=== PATIENT | female | born 1970 | race Caucasian/White ===

== ENCOUNTER 2020-09-21 12:21 | Emergency (ER) | payer BC ==
--- OUTSIDE RECORDS SUMMARY | 2020-09-21 12:24 | XMS REPORT | Continuity of Care Document ---
:1970 Author Organization [facility] t Address [address] [place] [address] Care Team Providers Name Role Phone JENA GONZALEZ Attending Clinician Unavailable Payers Payer Name Policy Type Policy Number Effective Date Expiration Date S katya [employer] PPO [id number] 2020 00:00:00 Problems Condition Condition Condition Status Onset Resolution Last Treating Co mments Source Name Details Category Date Date Treatment Clinician Date ROUTINE Condition Active 2014-04-30 Me moria GYNECOLOGI 2-25 13:35:00 l HANNA ROUTINE 00:00: Harper EXAMINATIO GYNECOLOGI 00 N HANNA EXAMINATIO N Active 04/16/2012 Condition 5 [facility] [employer] SURVEILLAN Condition Active 2014-04-30 Memoria CE PREV 2-25 13:35:00 l PRESCRIBED 00:00: Stefano n CONTRACEPT SURVEILLAN 00 PILL CE PREV PRESCRIBED CONTRACEPT PILL Active 04/16/2012 Condition 5 [facility] Allergies, Adverse Reactions, Alerts This patient has no known allergies or adverse reactions. Medications Ordered Filled Start Stop Current Ordering Indication Dosage Frequency Signature Comments Components Source Medication Medication Date Date Medication? Clinician (SIG) Name Name LAMICTAL Yes Memoria 200 MG TABS 3-11 l 13:35: Korey 00 FOCALIN XR Yes 1 po qd Tyrone sharmila 10 MG 3-11 l [id number] 13:35: Korey 00 NATAZIA Yes take one Memori a 3/2-2/2-3/1 2-25 by mouth l MG TABS 00:00: daily Harper 00 Vital Signs Vital Name Observation Time Observation Value Comments Source Weight 2014-04-30 16:31:41 [facility] Systolic (mm Hg) 2014-04-30 16:31:41 [place] rial Harper Diastolic (mm Hg) 2014-04-30 16:31:41 Mem orial Harper Heart Rate 2014-04-30 16:31:41 [facility] Korey Weight 2013-04-24 16:53:22 [facility] Korey Systolic (mm Hg) 2013-04-24 16:53:22 [place] rial Korey Diastolic (mm Hg) 2013-04-24 16:53:22 Mem orial Harper Height 2012-04-16 20:49:30 [facility] Weight 2012-04-16 20:49:30 [facility] Systolic (mm Hg) 2012-04-16 20:49:30 [place] rial Harper Diastolic (mm Hg) 2012-04-16 20:49:30 Mem orial Harper Heart Rate 2012-04-16 20:49:30 [facility] Procedures Procedure Date / Time Performed Performing Clinician [facility] e vaginal Pap smear results 2011-01-26 16:01:24 Hi morial Korey mammogram 2001-06-19 15:00:54 [facility] Encounters Start End Encounter Admission Attending Care Care Encounter Source Date/Time Date/Time Type Type Clinicians Facility Department ID 2020-09-12 Outpatient [facility] [id number] [place] 01:04:22 CHANDLER Collado 2020-08-12 2020-08-12 Outpatient [id number] 09:44:00 09:44:00 Results Test Description Test Time Test Comments Results Result Comments Source Membership Coordinator 2014-04-30 normal [facility] Jessica nn 16:31:41 Membership Coordinator 2012-05-02 Complete [facility] Jessica nn 05:00:00 Membership Coordinator 2011-01-26 Done [facility] Jessica nn 16:01:24
[2020-09-21 14:36] LABS: Protime INR 0.96
--- NOTE | 2020-09-21 14:40 | RAD REPORT ---
EXAM DESCRIPTION: CTAbdomen Pelvis W Contrast - 09/21/2020 2:30 pm CLINICAL HISTORY: Abdominal pain. VAGINAL BLEEDING COMPARISON: Abdomen Pelvis W Contrast dated 05/09/2016 TECHNIQUE: Biphasic CT imaging of the abdomen and pelvis was performed with 100 ml non-ionic IV cont rast. All CT scans are performed using dose optimization technique as appropriate and may include automated exposure control or mA/KV adjustment according to patient size. FINDINGS: The lung bases are clear. The liver, spleen, pancreas, adrenal glands and kidneys are within normal limits. Benign cysts are pr esent in both kidneys. No bowel obstruction, free air, free fluid or abscess. Significant stool is retained throughout the c olon. The appendix is normal. No evidence of significant lymphadenopathy. No suspicious bony findings. IMPRESSION: No acute intra-abdominal or pelvic finding. Significant stool is retained throughout the colon.
[2020-09-21 14:52] LABS: Albumin 3.9 g/dL (3.4-5.0); Bilirubin Direct 0.1 mg/dL (0-0.2); Bilirubin Total 0.4 mg/dL (0.2-1.0); Potassium 3.7 mmol/L (3.5-5.1); Protein, Total 7.2 g/dL (6.4-8.2)
[2020-09-21 14:54] LABS: Absolute Lymphocytes (CBC) 2.1 K/uL (0.7-4.9); Basophils % 0.6 % (0-1.3); Hematocrit 41.9 % (36.0-45.0); Lymphocytes % 31.2 % (15.3-44.8); MPV 8.2 fL (7.6-11.3); RBC Red Blood Cell Count 4.38 M/uL (3.86-4.86)
[2020-09-21] MEDS ORDERED: ESTROGENS,CONJ 25 MG IV IV SCH (16:00)
[2020-09-21 16:01] LABS: Urine Blood Trace-intact (Negative); Urine Glucose Negative (Negative); Urine Protein Negative (Negative); Urine pH 7.5 (5.0-7.0)
--- NOTE | 2020-09-21 16:34 | ER ---
Nurse's Notes [facility] Name: Javan Mora Age: 50 yrs Sex: Female : 1970 Arrival Date: 09/21/2020 Time: 12:36 Bed Treatment Private MD: Diagnosis: Abnormal uterine and vaginal bleeding, unspecified Presentation: 09/21 14:09 Chief complaint: Patient states: had a hysterectomy 6 weeks ago and started having iw vaginal bleeding, her surgeon is out of town , started spotting yesterday. Coronavirus screen: At this time, the client does not indicate any symptoms associated with coronavirus-19. Ebola Screen: Patient negative for fever greater than or equal to 101.5 degrees Fahrenheit, and additional compatible Ebola Virus Disease symptoms Patient denies exposure to infectious person. Patient denies travel to an Ebola-affected area in the 21 days before illness onset. No symptoms or risks identified at this time. Initial Sepsis Screen: Does the patient meet any 2 criteria? No. Patient's initial sepsis screen is negative. Does the patient have a suspected source of infection? No. Patient's initial sepsis screen is negative. Risk Assessment: Do you want to hurt yourself or someone else? Patient reports no desire to harm self or others. Onset of symptoms was September 20, 2020. 14:09 Method Of Arrival: Ambulatory iw 14:09 Acuity: JACKIE 3 iw Triage Assessment: 17:15 General: Appears in no apparent distress. Behavior is calm, cooperative. iw Historical: - Allergies: 14:10 dermabond; iw - PMHx: 14:10 Bipolar disorder; iw Screenin:12 Abuse screen: Denies threats or abuse. Denies injuries from another. Nutritional iw screening: No deficits noted. Tuberculosis screening: No symptoms or risk factors identified. Fall Risk None identified. Assessment: 16:20 General: Appears in no apparent distress. Behavior is calm, cooperative. Pain: iw Complains of pain in suprapubic area. Neuro: Level of Consciousness is awake, alert, obeys commands, Oriented to person, place, time, situation. Cardiovascular: Patient's skin is warm and dry. Respiratory: Respiratory effort is even, unlabored, Respiratory pattern is regular, symmetrical. : Reports vaginal bleeding that is spotty. Derm: Skin is intact, is healthy with good turgor. Musculoskeletal: Range of motion: intact in all extremities. Vital Signs: 14:09 BP 157 / 106; Pulse 96; Resp 16; Temp 98.0; Pulse Ox 100% on R/A; iw ED Course: 12:36 Patient arrived in ED. am2 14:10 Triage completed. iw 14:11 Arm band placed on. iw 14:17 Inserted saline lock: 22 gauge in right antecubital area, using aseptic technique. iw 14:30 CT Abd/Pelvis - IV Contrast Only In Process Unspecified. EDMS 15:51 Evelio Alcazar NP is PHCP. pm1 15:51 Dedrick Moore MD is Attending Physician. pm1 15:56 Justina Freeman RN is Primary Nurse. iw 16:20 Patient has correct armband on for positive identification. iw 18:12 No provider procedures requiring assistance completed. IV discontinued, intact, iw bleeding controlled, No redness/swelling at site. Pressure dressing applied. Administered Medications: No medications were administered Outcome: 16:34 Discharge ordered by MD. pm1 17:12 Discharged to home ambulatory, with friend. iw 17:12 Condition: good 17:12 Discharge instructions given to patient, Instructed on discharge instructions, follow up and referral plans. Demonstrated understanding of instructions, follow-up care. 17:13 Patient left the ED. iw Signatures: Dispatcher [employer] EDWY Justina Freeman RN RN iw Evelio Alcazar NP PRESS TECHNICIAN pm1 Darline Hurt am2 Corrections: (The following items were deleted from the chart) 14:11 14:09 BP 157 / 10; Pulse 96bpm; Resp 16bpm; Pulse Ox 100% RA; Temp 98.0F; iw iw
--- NOTE | 2020-09-21 16:35 | EDPHYS ---
Physician Documentation [facility] Name: Javan Mora Age: 50 yrs Sex: Female : 1970 Arrival Date: 09/21/2020 Time: 12:36 Bed Treatment Private MD: ED Physician Dedrick Moore HPI: 09/21 14:14 This 50 yrs old Female presents to ER via Ambulatory with complaints of pm1 Vaginal Bleeding. 14:14 The patient presents with vaginal bleeding that is spotting. Onset: The pm1 symptoms/episode began/occurred yesterday. Modifying factors: The symptoms are alleviated by nothing, the symptoms are aggravated by nothing. Associated signs and symptoms: Pertinent positives: cramping, Pertinent negatives: diarrhea, dysuria, fever, nausea, vomiting. Severity of symptoms: in the emergency department the symptoms are unchanged. The patient has been recently seen by a physician: Patient had hysterectomy 6 weeks ago in [place]. Surgeon is on vacation so she instructed to report to the ER for evaluation and treatment. 14:14 Patient with follow up appointment with the surgeon on Monday. pm1 Historical: - Allergies: 14:10 dermabond; iw - PMHx: 14:10 Bipolar disorder; iw ROS: 14:14 Positive for vaginal bleeding, Negative for urinary symptoms, flank pain. pm1 14:14 Constitutional: Negative for fever, chills, and weight loss, Cardiovascular: Negative for chest pain, palpitations, and edema, Respiratory: Negative for shortness of breath, cough, wheezing, and pleuritic chest pain. 14:14 Back: Negative for injury and pain, MS/Extremity: Negative for injury and deformity, Skin: Negative for injury, rash, and discoloration. 14:14 Abdomen/GI: Positive for abdominal cramps, Negative for nausea, vomiting, and diarrhea. 14:14 Neuro: Positive for headache, Negative for numbness, tingling, weakness. 14:14 All other systems are negative. Exam: 14:14 Constitutional: This is a well developed, well nourished patient who is awake, alert, pm1 and in no acute distress. Head/Face: Normocephalic, atraumatic. 14:14 Back: No spinal tenderness. No costovertebral tenderness. Full range of motion. Skin: Warm, dry with normal turgor. Normal color with no rashes, no lesions, and no evidence of cellulitis. MS/ Extremity: Pulses equal, no cyanosis. Neurovascular intact. Full, normal range of motion. 14:14 Eyes: Exam is negative for acute changes, Conjunctiva: no acute changes, no injection, Sclera: no acute changes, icterus, is not appreciated. 14:14 Cardiovascular: Rate: normal, Rhythm: regular, Pulses: no pulse deficits are appreciated, Edema: is not appreciated. 14:14 Respiratory: Exam negative for acute changes, respiratory distress, shortness of breath. 14:14 Abdomen/GI: Inspection: abdomen appears normal, Palpation: soft, in all quadrants, mild abdominal tenderness, in the suprapubic area. 14:14 Neuro: Exam negative for acute changes, Orientation: is normal, Mentation: is normal, Motor: is normal, moves all fours, Gait: is steady, at a normal pace, without difficulty. 16:25 : Pelvic Exam: External exam: is normal, Speculum exam: scant bleeding, no tissue in pm1 vagina is seen, No signs of dehiscence. Sutures intact at the end of vagina vault. Scant bleeding present to left side of surgical wound. 16:25 : Clare THOMPSON present as patent counsel. pm1 Vital Signs: 14:09 BP 157 / 106; Pulse 96; Resp 16; Temp 98.0; Pulse Ox 100% on R/A; iw MDM: 14:18 Data reviewed: vital signs. Data interpreted: Pulse oximetry: on room air is 100 %. pm1 Interpretation: normal. 15:51 Patient medically screened. pm1 16:07 Counseling: I had a detailed discussion with the patient and/or guardian regarding: lab pm1 results, radiology results. 09/21 14:13 Order name: Basic Metabolic Panel; Complete Time: 15:52 pm1 09/21 14:13 Order name: CBC with Diff; Complete Time: 15:52 pm1 09/21 14:13 Order name: Hepatic Function; Complete Time: 15:52 pm1 09/21 14:13 Order name: Lipase; Complete Time: 15:52 pm1 09/21 14:13 Order name: PT-INR; Complete Time: 15:52 pm1 09/21 16:01 Order name: Urine Dipstick-Ancillary; Complete Time: 16:02 EDMS 09/21 14:13 Order name: IV Saline Lock; Complete Time: 14:17 pm1 09/21 14:13 Order name: Labs collected and sent; Complete Time: 14:17 pm1 09/21 14:13 Order name: Urine Dipstick-Ancillary (obtain specimen); Complete Time: 16:00 pm1 09/21 14:14 Order name: CT Abd/Pelvis - IV Contrast Only; Complete Time: 15:52 pm1 09/21 16:07 Order name: Pelvic Exam Setup; Complete Time: 16:10 pm1 09/21 16:35 Order name: CREATININE WHOLE BLOOD; Complete Time: 16:36 EDMS Administered Medications: No medications were administered Disposition: 17:58 Co-signature as Attending Physician, Dedrick Moore MD I agree with the assessment and kdr plan of care. Disposition Summary: 09/21/20 16:34 Discharge Ordered Location: Home pm1 Problem: new pm1 Symptoms: have improved pm1 Condition: Stable pm1 Diagnosis - Abnormal uterine and vaginal bleeding, unspecified pm1 Followup: pm1 - With: Emergency Department - When: As needed - Reason: Worsening of condition Followup: pm1 - With: Private Physician - When: 2 - 3 days - Reason: Recheck today's complaints, Continuance of care, Re-evaluation by your physician Discharge Instructions: - Discharge Summary Sheet pm1 - Abdominal Pain, Adult pm1 Forms: - Medication Reconciliation Form pm1 - Thank You Letter pm1 - Antibiotic Education pm1 - Prescription Opioid Use pm1 Signatures: Dispatcher [employer] EDIA Dedrick Moore MD MD kdr Williams, Irene, RN RN Evelio Umanzor NP CHEMISTRY TEACHER pm1
[2020-09-21 17:18] VITALS: BP 157/106; TEMP 98; O2SAT 100
== END 2020-09-21 17:13 | disposition home or self-care (01) ==
LOC: ER 12:21
DX: N93.9 Abnormal uterine and vaginal bleeding, unspecified (principal); Z91.048 Other nonmedicinal substance allergy status
CPT/HCPCS: 85025; 80048; 36415; 85610; 82565; 80076; 81003; 83690; 74177; Q9967; J1410